=== PATIENT | male | born 1995 | race Caucasian/White ===

== ENCOUNTER → 2018-01-27 | Outpatient (REF) | payer BC ==
[~2018-01-27] MED LIST: ALBU8.5H IH; LEVO75TA73 PO; ONDA4TAB9 PO; PRED20TA6 PO; RANI-366 PO
== END ==
LOC: ZZSENDIN 12:11
PROVIDERS: ATTEND Family Medicine
DX: R07.89 Other chest pain (principal)
CPT/HCPCS: 85379

== ENCOUNTER 2018-02-09 21:13 | Emergency (ER) | payer BC ==
--- NOTE | 2018-02-09 21:26 | ER Report ---
History and Physical Time Seen By MD: 21:25 Hx. of Stated Complaint: PT REPORTS FEELING SHORT OF BREATH FOR THE PAST WEEK, THIS EVENING HE WAS SITTING AT HIS DESK AND SUDDENLY FELT LIKE HE RAN A COUPLE MILES HE WAS SO SHORT OF BREATH HPI/ROS CHIEF COMPLAINT: Shortness of breath HISTORY OF PRESENT ILLNESS: 22-year-old male presents to the ER complaining of shortness of breath and chest pain. Tonight he was sitting down working on his computer after eating dinner. Patient's been having mild cold symptoms for 1 week. His girlfriend's been sick for 5 weeks with a continuous cough. He thinks she may have infected her. Tonight. Patient felt sudden sharp pains in his chest and he felt like his heart was racing out of control. 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 He exercises regularly, but over the last several weeks. He's been unable to exercise. 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 He has a job lined up in [facility]. Patient notes an occasional dry cough. He's noted some subjective fevers. REVIEW OF SYSTEMS: Respiratory: No cough, no dyspnea. Cardiovascular: No chest pain, no palpitations. Gastrointestinal: No vomiting, no abdominal pain. Musculoskeletal: No back pain. Allergies: Coded Allergies: No Known Drug Allergies (Unverified , 11/15/15) Home Meds Reported Medications Levothyroxine Sodium (LEVOTHYROXINE SODIUM) 75 Mcg Tablet, 75 MCG PO QDAY, TAB 11/15/15 Discontinued Scripts Prednisone (PREDNISONE) 20 Mg Tablet, 1 TAB PO BID, #10 TAB 0 Refills Prov:BELÉN MYERS DNP, FNP-BC 07/06/16 Ranitidine Hcl (ZANTAC) 150 Mg Tablet, 1 TAB PO BID, #20 TAB 0 Refills Prov:BELÉN MYERS DNP, FNP-BC 07/04/16 Albuterol Sulfate 90 Mcg/Act (PROAIR HFA 90 MCG/ACT) 8.5 Gm Hfa.aer.ad, 1-2 PUFF IH 3-4XD PRN for SHORTNESS OF BREATH, #1 INHALER 0 Refills Prov:BELÉN MYERS DNP, FNP-BC 07/04/16 Reviewed Nurses Notes: Yes Old Medical Records Reviewed: Yes Smoking Status: Never Smoker Hx Substance Use Disorder: No Hx Alcohol Use: Yes (RARE) Constitutional Vital Sign - Last 24 Hours 02/09/18 02/09/18 02/09/18 02/09/18 21:19 21:28 21:30 21:43 Temp 97.6 Pulse 109 94 114 Resp 22 21 B/P (MAP) 148/98 141/86 (104) Pulse Ox 98 95 91 O2 Delivery Room Air 02/09/18 02/09/18 02/09/18 02/09/18 21:54 21:58 22:00 22:08 Pulse 89 78 95 Resp 16 9 16 B/P (MAP) 116/79 (91) Pulse Ox 98 02/09/18 02/09/18 02/09/18 02/09/18 22:13 22:30 22:33 22:48 Pulse 88 81 90 Resp 19 B/P (MAP) 130/94 (106) Pulse Ox 97 95 96 02/09/18 02/09/18 02/09/18 02/09/18 22:53 23:00 23:08 23:23 Pulse 94 100 91 B/P (MAP) 139/93 (108) Pulse Ox 95 96 95 02/09/18 02/09/18 23:30 23:55 Pulse 111 B/P (MAP) 148/95 (112) Pulse Ox 95 Physical Exam General Appearance: The patient is alert, has no immediate need for airway p rotection and no current signs of toxicity.. Vital signs stable, afebrile, pulse ox normal HEENT: Pupils equal and round no injection. TMs normal, oropharynx with moderate erythema, no exudate or petechiae Respiratory: Chest is non tender, lungs are clear to auscultation. No wheezing or rails Cardiac: regular rate and rhythm Gastrointestinal: Abdomen is soft and non tender, no masses, bowel sounds normal. Musculoskeletal: Neck: Neck is supple and non tender. Extremities have full range of motion and are non tender. Skin: No rashes or lesions. DIFFERENTIAL DIAGNOSIS: After history and physical exam differential diagnosis was considered for shortness of breath including but not limited to pulmonary infectious process, COPD, asthma, pulmonary embolus and congestive heart failure. Medical Decision Making Data Points Result Diagram: 02/09/18224702/09/182247 Laboratory Hematology Test 02/09/18 22:48 Red Blood Count 5.58 M/uL (4.00-5.60) Mean Corpuscular Volume 88.3 fL (80.0-96.0) Mean Corpuscular Hemoglobin 31.1 pg (26.0-33.0) Mean Corpuscular Hemoglobin Concent 35.2 g/dL (32.0-36.0) Red Cell Distribution Width 13.5 % (11.5-14.5) Mean Platelet Volume 7.8 fL (7.2-11.1) Neutrophils (%) (Auto) 69.2 % (39.4-72.5) Lymphocytes (%) (Auto) 22.5 % (17.6-49.6) Monocytes (%) (Auto) 6.5 % (4.1-12.4) Eosinophils (%) (Auto) 0.6 % (0.4-6.7) Basophils (%) (Auto) 1.2 % (0.3-1.4) Nucleated RBC Relative Count (auto) 0.1 /100WBC Neutrophils # (Auto) 6.8 K/uL (2.0-7.4) Lymphocytes # (Auto) 2.2 K/uL (1.3-3.6) Monocytes # (Auto) 0.6 K/uL (0.3-1.0) Eosinophils # (Auto) 0.1 K/uL (0.0-0.5) Basophils # (Auto) 0.1 K/uL (0.0-0.1) Nucleated RBC Absolute Count (auto) 0.01 K/uL Prothrombin Time 13.9 seconds (12.0-14.4) Prothromb Time International Ratio 1.07 Activated Partial Thromboplast Time 31 seconds (23-35) D-Dimer Quantitative (PE/DVT) 0.34 ug/ml (0-0.50) Sodium Level 143 mmol/L (137-145) Potassium Level 3.5 mmol/L (3.5-5.0) Chloride Level 105 mmol/L (98-107) Carbon Dioxide Level 25 mmol/L (22-30) Blood Urea Nitrogen 14 mg/dl (9-21) Creatinine 1.00 mg/dl (0.66-1.25) Glomerular Filtration Rate Calc > 60.0 Random Glucose 112 mg/dl (75-110) Calcium Level 9.4 mg/dl (8.4-10.2) Total Bilirubin 0.6 mg/dl (0.2-1.3) Aspartate Amino Transf (AST/SGOT) 18 U/L (0-35) Alanine Aminotransferase (ALT/SGPT) 28 U/L (0-56) Alkaline Phosphatase 50 U/L (0-126) Troponin I < 0.012 ng/ml Total Protein 7.5 g/dl (6.3-8.2) Albumin 4.5 g/dl (3.5-5.0) Chemistry Test 02/09/18 22:48 White Blood Count 9.8 k/uL (4.5-11.0) Red Blood Count 5.58 M/uL (4.00-5.60) Hemoglobin 17.3 g/dL (14.0-18.0) Hematocrit 49.3 % (42.0-52.0) Mean Corpuscular Volume 88.3 fL (80.0-96.0) Mean Corpuscular Hemoglobin 31.1 pg (26.0-33.0) Mean Corpuscular Hemoglobin Concent 35.2 g/dL (32.0-36.0) Red Cell Distribution Width 13.5 % (11.5-14.5) Platelet Count 235 K/uL (150-450) Mean Platelet Volume 7.8 fL (7.2-11.1) Neutrophils (%) (Auto) 69.2 % (39.4-72.5) Lymphocytes (%) (Auto) 22.5 % (17.6-49.6) Monocytes (%) (Auto) 6.5 % (4.1-12.4) Eosinophils (%) (Auto) 0.6 % (0.4-6.7) Basophils (%) (Auto) 1.2 % (0.3-1.4) Nucleated RBC Relative Count (auto) 0.1 /100WBC Neutrophils # (Auto) 6.8 K/uL (2.0-7.4) Lymphocytes # (Auto) 2.2 K/uL (1.3-3.6) Monocytes # (Auto) 0.6 K/uL (0.3-1.0) Eosinophils # (Auto) 0.1 K/uL (0.0-0.5) Basophils # (Auto) 0.1 K/uL (0.0-0.1) Nucleated RBC Absolute Count (auto) 0.01 K/uL Prothrombin Time 13.9 seconds (12.0-14.4) Prothromb Time International Ratio 1.07 Activated Partial Thromboplast Time 31 seconds (23-35) D-Dimer Quantitative (PE/DVT) 0.34 ug/ml (0-0.50) Glomerular Filtration Rate Calc > 60.0 Calcium Level 9.4 mg/dl (8.4-10.2) Total Bilirubin 0.6 mg/dl (0.2-1.3) Aspartate Amino Transf (AST/SGOT) 18 U/L (0-35) Alanine Aminotransferase (ALT/SGPT) 28 U/L (0-56) Alkaline Phosphatase 50 U/L (0-126) Troponin I < 0.012 ng/ml Total Protein 7.5 g/dl (6.3-8.2) Albumin 4.5 g/dl (3.5-5.0) Coagulation Test 02/09/18 22:48 Prothrombin Time 13.9 seconds Prothromb Time International Ratio 1.07 Activated Partial Thromboplast Time 31 seconds D-Dimer Quantitative (PE/DVT) 0.34 ug/ml EKG/Imaging EKG Interpretation 12 lead EK Rhythm: normal sinus rhythm with sinus arrhythmia Pease: normal QRS: normal ST segments: normal, no evidence of ischemia or dysrhythmia Imaging X-ray: Two-view chest x-ray was obtained. I viewed the images myself on the PACS system. My interpretation of the images is: No infiltrate, no effusion, normal mediastinum., Comparison to previous chest x-ray dated 07/04/16, no significant change. The radiologist interpretation had no clinically significant variation from this interpretation. ED Course/Re-evaluation ED Course Patient was admitted to an examination room. H&P was done. The differential diagnoses was considered. Patient with is of breath and chest pain. His initial EKG is unremarkable. There is an S1, every 3, T3 noted on the EKG, suspicious for pulmonary embolism and heart strain. His chest x-ray is unremarkable. He has a previous chest x-ray to compare to from 517. Patient still with some mild shortness of breath. He was improved after nebulizer treatment. Laboratory studies were sent off. His d-dimer and troponin returned unremarkable. His white blood cell counts normal. His H&H is stable. Patient on clinical examination has clubbing noted of his finger, suggesting long-term pulmonary insufficiency. Patient will need follow up with pulmonology. He's pr ovided information to us follow-up locally, but he is leaving after graduation in a few days to go back to [facility] where he has new found employment. He's can follow up with pulmonology out there. He was given information for primary hypertension and for off antitrypsin deficiency disease. He will need extensive pulmonary evaluation. Decision to Disposition Date: Feb 09, 2018 Decision to Disposition Time: 22:09 Depart Departure Latest Vital Signs Vital Signs Date Time Temp Pulse Resp B/P (MAP) Pulse Ox O2 Delivery O2 Flow Rate FiO2 02/09/18 23:55 111 95 02/09/18 23:30 148/95 (112) 02/09/18 22:13 19 02/09/18 21:19 97.6 Room Air Impression: Primary Impression: Chest wall pain Additional Impressions: Viral syndrome Clubbing of nails Condition: Improved Disposition: HOME OR SELF-CARE Referrals: MABEL RAO DO Patient Instructions: Chest Wall Pain (ED), Viral Syndrome (ED) Additional Instructions: Take ibuprofen 200 mg 3 tablets 3 times a day with food Follow-up with primary care if unimproved in 3-5 days Call and make follow-up appointment with pulmonology, Dr. Lundberg or [facility] GARRETT HIGUERA DO Feb 09, 2018 21:26
[2018-02-09] MEDS ORDERED: ALBUTEROL 2.5 MG/3 ML NEB NEB ONE (21:40)
--- NOTE | 2018-02-09 22:16 | EKG ---
FACILITY: [facility] - [place] PATIENT NAME: JOSE FENG : [id number] MR: [id number] V: [id number] EXAM DATE: ORDERING PHYSICIAN: GARRETT HIGUERA TECHNOLOGIST: JANELL Fernández Reason : CP DYSPNEA Blood Pressure : / mmHG Vent. Rate : 081 BPM Atrial Rate : 081 BPM P-R Int : 158 ms QRS Dur : 094 ms QT Int : 372 ms P-R-T Axes : 066 074 028 degrees QTc Int : 432 ms Normal sinus rhythm with sinus arrhythmia Normal ECG When compared with ECG of 06-JUL-2016 16:07, No significant change was found Confirmed by AB FAULKNER ([id number]) on 02/10/2018 6:46:29 AM Referred By: Confirmed By:AB FAULKNER
--- NOTE | 2018-02-09 22:37 | RADIOLOGY IMAGING REPORT ---
FACILITY: [facility] - [place] PATIENT NAME: Fantasma Thakur : 1995 MR: [id number] V: [id number] EXAM DATE: ORDERING PHYSICIAN: GARRETT HIGUERA TECHNOLOGIST: Location: [facility] Patient: Fantasma Thakur : 1995 Visit/Account:[id number] Date of Sevice: 02/09/2018 2 VIEWS CHEST INDICATION: Chest pain and dyspnea. COMPARISON: 07/04/2016. FINDINGS: Cardiomediastinal silhouette and pulmonary vessels within normal limits. There is no focal infiltrate or lobar consolidation. There is no pneumothorax or pleural effusion. No nodule. Upper abdomen is unremarkable. No acute bony abnormality. IMPRESSION: 1. No acute cardiopulmonary process. Report Dictated By: Jatin Roa at 02/09/2018 10:30 PM Report E-Signed By: Jatin Roa at 02/09/2018 10:32 PM WSN:[id number]
[2018-02-09 23:09] LABS: PLATELET COUNT, AUTOMATED 235 K/uL (150-450)
[2018-02-09 23:20] LABS: INR 1.07
[2018-02-09 23:30] VITALS: BP 148/95
== END 2018-02-10 00:01 | disposition home or self-care (01) ==
LOC: ER 21:30
DX: R07.89 Other chest pain (principal); B34.9 Viral infection, unspecified; R68.3 Clubbing of fingers
CPT/HCPCS: 71046; 84484; 85025; 85379; 85610; 85730; 93005; 94640; 99284; J7613; 82040; 82247; 82310; 82374; 82435; 82565; 82947; 84075; 84132; 84155; 84295; 84450; 84460; 84520